=== PATIENT | female | born 1980 | race African-American/Black ===

== ENCOUNTER 2017-08-21 18:33 | Emergency (ER) | payer OTHER ==
[~2017-08-21 18:33] MED LIST: DEPO400I IM; IBUP600T26 PO; MECL25CH PO
[2017-08-21 18:47] VITALS: BP 139/63; PULSE 95; RESP 18; TEMP 98.5; O2SAT 98
[2017-08-21 23:48] VITALS: BP 127/72; PULSE 76; RESP 16; O2SAT 99
[2017-08-21] MEDS ORDERED: MECL-62 PO (23:51)
--- NOTE | 2017-08-21 23:55 | PD ---
HPI Chief Complaint: Headache Time Seen by Provider: 23:55 Travel History International Travel<30 days: No Contact w/Intl Traveler<30days: No Traveled to known affect area: No History of Present Illness HPI 36-year-old female came to the emergency room with history of headache and dizziness which was sudden onset about 6 hours ago. Patient has been here for past 5-1/2 hours in the waiting room. She said that she gets these headaches and usually Tylenol gets a better. She was working in the kitchen when this happened and hence came down to the emergency room. Vital signs are stable. She has not taken any medications for it. In the past she has taken meclizine for her vertigo. She says the headache started to subside a little bit. The dizziness feels little better as well. [facility] Past Medical History Narrative Medical List of her past medical, surgical, social and family history is reviewed from the nursing note Asthma: Yes Medical other: Yes (VERTIGO) Tetanus Vaccination: Unknown Influenza Vaccination: Yes ?: Not LMP: 08/19/17 : 3 Para: 1 Past Surgical History Section: Yes Eye Surgery: Yes (BILATERAL EYES) Other Surgery: Yes ( CHILD TOOK FLUID OFF LUNGS) Social History Alcohol Use: Yes (OCC) Tobacco Use: Yes (CIGARS) Substance Use: No Allergies-Medications (Allergen,Severity, Reaction): Coded Allergies: naproxen (Unverified Allergy, Severe, Rash, 01/30/17) Comments List of her allergies reviewed from the nursing note Reported Meds & Prescriptions Reported Meds & Active Scripts Active Meclizine (Meclizine HCl) 25 Mg Tab 25 Mg PO DIRECTED PRN Reported Meclizine (Meclizine HCl) 25 Mg Tab 25 Mg PO DIRECTED PRN Narrative Medication List of her home medications reviewed from the nursing note Review of Systems Except as stated in HPI: all other systems reviewed are Neg Neurologic: Positive: Dizziness, Headache Physical Exam Narrative GENERAL: Awake, alert, no obvious distress SKIN: Focused skin assessment warm/dry. HEAD: Atraumatic. Normocephalic. EYES: Pupils equal and round. No scleral icterus. No injection or drainage. ENT: No nasal bleeding or discharge. Mucous membranes pink and moist. NECK: Trachea midline. No JVD. CARDIOVASCULAR: Regular rate and rhythm. No murmur appreciated. RESPIRATORY: No accessory muscle use. Clear to auscultation. Breath sounds equal bilaterally. GASTROINTESTINAL: Abdomen soft, non-tender, nondistended. Hepatic and splenic margins not palpable. MUSCULOSKELETAL: No obvious deformities. No clubbing. No cyanosis. No edema. NEUROLOGICAL: Awake and alert. No obvious cranial nerve deficits. Motor grossly within normal limits. Normal speech. Normal gait PSYCHIATRIC: Appropriate mood and affect; insight and judgment normal. Data Data Last Documented VS Vital Signs Date Time Temp Pulse Resp B/P (MAP) Pulse Ox O2 Delivery O2 Flow Rate FiO2 08/21/17 23:48 76 16 127/72 (90) 99 Room Air 08/21/17 18:47 98.5 Orders Orders Acetaminophen (Tylenol) (08/22/17 00:15) Meclizine (Antivert) (08/22/17 00:15) Ed Discharge Order (08/22/17 00:03) [facility] Medical Decision Making Medical Screen Exam Complete: Yes Emergency Medical Condition: Yes Medical Record Reviewed: Yes Differential Diagnosis BPV, acute on chronic headache Narrative Course 12:10 AM patient was in the emergency room in 2014 for the exact same reason and a CAT scan was done. No significant abnormality was noticed. Since patient appears to be comfortable and in no neurologic deficits with normal vital signs I am comfortable giving her Tylenol and meclizine. Patient is comfortable with that plan. She will be discharged home after that. I will give her a prescription of meclizine since she ran out of her meclizine from the past. Procedures EKG Prior to Arrival: No Diagnosis Primary Impression: Headache Qualified Codes: R51 - Headache Additional Impression: Vertigo Referrals: Primary Care Physician 2 days Departure Forms: Tests/Procedures, Work Release Enter return to work date: Aug 24, 2017 Additional Instructions: Return to the ER if condition worsens or any other new concerns. Otherwise follow-up with your primary care. Drink lots of fluid and caffeinated beverages. Stay away from alcohol, cigarettes, wine, cheese and chocolates that worsens the headache. Take the medication as per the prescription direction. You should not be driving until his symptoms improve. Med/Other Pt SpecificInfo: Prescription(s) given Scripts Meclizine (Meclizine) 25 Mg Tab 25 MG PO DIRECTED Y for VERTIGO, #15 TAB 0 Refills Prov: Rupinder,Shravanti R. MD 08/22/17 Disposition: 01 DISCHARGE HOME Condition: Stable Azael Bucio MD Aug 21, 2017 23:55
[2017-08-22] MEDS ORDERED: MECL-62 PO (00:06)
[2017-08-22] MEDS ORDERED: ACETAMINOPHEN 325 MG TAB PO ONE (00:15)
[2017-08-22] MEDS ORDERED: MECLIZINE HCL 25 MG TAB PO ONE (00:15)
== END 2017-08-22 00:33 | disposition home or self-care (01) ==
LOC: NEPD 18:33
DX: R51 Headache (principal); R42 Dizziness and giddiness; J45.909 Unspecified asthma, uncomplicated; F17.290 Nicotine dependence, other tobacco product, uncomplicated; Z88.8 Allergy status to other drugs, medicaments and biological substances; Z79.899 Other long term (current) drug therapy
CPT/HCPCS: 99283